=== PATIENT | female | born 1960 | race Caucasian/White ===

== ENCOUNTER 2017-01-03 21:15 | Inpatient (IN) | payer MEDICARE ==
[~2017-01-03] VITALS: Ht 160 cm; Wt 44.7 kg
[~2017-01-03 21:15] MED LIST: insulin
[2017-01-03] MEDS ORDERED: PLEASE ENTER HEIGHT AND WEIGHT MC SCH (21:30)
[2017-01-03] MEDS ORDERED: SODIUM CHLORIDE 0.9% 1,000ML IVBOLUS ONE ×2 (21:30→22:30)
[2017-01-03 21:43] LABS: HEMATOCRIT 39.1 % (34.6-47.8); HEMOGLOBIN 12.9 g/dL (11.7-16.4); WHITE BLOOD COUNT 10.4 x10^3/uL (3.4-10)
[2017-01-03 21:44] LABS: PH, VENOUS 7.457 pH (7.320-7.420)
[2017-01-03] MEDS ORDERED: ONDANSETRON 2MG/ML, 2ML ONE (21:45)
[2017-01-03] MEDS ORDERED: PROMETHAZINE 25 MG/ML, 1ML ONE (21:45)
[2017-01-03] MEDS ORDERED: LORazepam 2 MG/ML, 1ML ONE (21:46)
[2017-01-03 21:56] LABS: ASPARTATE AMINO TRANSFERASE 11 U/L (15-37); BLOOD UREA NITROGEN 23 mg/dL (7-18)
[2017-01-03] MEDS ORDERED: LORazepam 2 MG/ML, 1ML IVPush ONE (22:00)
[2017-01-03] MEDS ORDERED: ONDANSETRON 2MG/ML, 2ML IVPush ONE (22:00)
[2017-01-03] MEDS ORDERED: PROMETHAZINE 25 MG/ML, 1ML IM ONE (22:00)
[2017-01-03 22:02] LABS: IS PT STATUS REG ER OR PRE ER? YES
[2017-01-03] MEDS ORDERED: SODIUM CHLORIDE 0.9% 1,000 ML IV ONE (22:16)
[2017-01-03] MEDS ORDERED: REGULAR INSULIN 62.5 UNITS in SODIUM CHLORIDE 0.9% 249.375 ML IV PRN ×2 (22:16→23:15)
[2017-01-03] MEDS ORDERED: D5%-0.45% NACL 1,000 ML IV PRN (23:15)
[2017-01-03] MEDS ORDERED: ONDANSETRON 2MG/ML, 2ML IVPush PRN (23:30)
[2017-01-03] MEDS ORDERED: DEXTROSE 4 GM TAB.CHEW PO PRN (23:30)
[2017-01-03] MEDS ORDERED: DEXTROSE 50%, 50ML SYRINGE IVPush PRN (23:30)
[2017-01-03] MEDS ORDERED: GLUCAGON 1 MG IM PRN (23:30)
[2017-01-04] MEDS ORDERED: LABETALOL 5MG/ML, 20ML IVPush PRN
[2017-01-04] MEDS ORDERED: ONDANSETRON ODT 4 MG PO PRN
[2017-01-04] MEDS ORDERED: ENALAPRILAT 1.25 MG/ML, 2ML IVPush PRN
[2017-01-04 00:45] VITALS: BP 130/60
[2017-01-04] MEDS ORDERED: LORazepam 2 MG/ML, 1ML IVPush PRN ×2 (01:00)
[2017-01-04] MEDS ORDERED: ZIPRASIDONE 20 MG INJ IM ONE (01:00)
[2017-01-04] MEDS: FAMOTIDINE 20 MG/2 ML IVPush SCH ×3 (01:31→20:12)
[2017-01-04] MEDS: NICOTINE 14MG/24 HR PATCH.TD24 TD SCH ×2 (01:31→23:33)
[2017-01-04 02:18] LABS: BLOOD UREA NITROGEN 19 mg/dL (7-18)
[2017-01-04] MEDS: SODIUM CHLORIDE 0.9% 1,000 ML IV SCH ×2 (04:01→08:21)
[2017-01-04] MEDS: D5%-0.45% NACL 1,000 ML IV SCH ×2 (04:01→10:42)
[2017-01-04 04:18] VITALS: BP 108/88
[2017-01-04 06:23] LABS: BLOOD UREA NITROGEN 18 mg/dL (7-18)
[2017-01-04] MEDS: SODIUM CHLORIDE FLUSH 10ML SYR IVF SCH ×3 (09:04→20:11)
[2017-01-04 10:32] LABS: BLOOD UREA NITROGEN 15 mg/dL (7-18)
[2017-01-04] MEDS ORDERED: GLUCAGON 1 MG IM PRN (12:00)
[2017-01-04] MEDS ORDERED: INSULIN ASPART 100 UNITS/ML, PEN SQ-INSULIN SCH (12:00)
[2017-01-04] MEDS: INSULIN ASPART 100 UNITS/ML, PEN SQ-INSULIN SCH ×4 (12:00→23:38)
[2017-01-04] MEDS ORDERED: DEXTROSE 4 GM TAB.CHEW PO PRN (12:00)
[2017-01-04] MEDS ORDERED: INSULIN DETEMIR 100 UNITS/ML, PEN SQ-INSULIN SCH (12:00)
[2017-01-04] MEDS ORDERED: DEXTROSE 50%, 50ML SYRINGE IVPush PRN (12:00)
[2017-01-04] MEDS: ACETAMINOPHEN 325 MG TABLET PO PRN ×2 (17:21→21:01)
[2017-01-05] MEDS ORDERED: INSULIN DETEMIR 100 UNITS/ML, PEN SQ-INSULIN SCH
[2017-01-05] MEDS ORDERED: ALBUTEROL/IPRATROPIUM 2.5MG/0.5MG, 3 ML ONE (03:49)
[2017-01-05 04:00] VITALS: BP 133/55
[2017-01-05] MEDS: INSULIN ASPART 100 UNITS/ML, PEN SQ-INSULIN SCH ×5 (04:00→20:27)
[2017-01-05] MEDS ORDERED: ALBUTEROL/IPRATROPIUM 2.5MG/0.5MG, 3 ML NPPB PRN (04:00)
[2017-01-05 04:52] LABS: BLOOD UREA NITROGEN 16 mg/dL (7-18)
[2017-01-05 04:55] LABS: ASPARTATE AMINO TRANSFERASE 16 U/L (15-37)
[2017-01-05 05:07] LABS: HEMATOCRIT 43.9 % (34.6-47.8); HEMOGLOBIN 14.4 g/dL (11.7-16.4); WHITE BLOOD COUNT 13.6 x10^3/uL (3.4-10)
[2017-01-05 06:14] VITALS: BP 133/55
[2017-01-05] MEDS ORDERED: MAGNESIUM SULFATE PMX 2GM/50ML 50 ML IV ONE (06:30)
[2017-01-05 07:04] VITALS: BP 120/60
[2017-01-05] MEDS: SODIUM CHLORIDE FLUSH 10ML SYR IVF SCH ×4 (08:14→20:22)
[2017-01-05] MEDS: FAMOTIDINE 20 MG/2 ML IVPush SCH ×2 (08:23→20:20)
[2017-01-05] MEDS: ACETAMINOPHEN 325 MG TABLET PO PRN ×2 (08:34→15:41)
[2017-01-05] MEDS: CEFTRIAXONE PMX 1GM/50ML 50 ML IV SCH (10:04)
[2017-01-05] MEDS: INSULIN DETEMIR 100 UNITS/ML, PEN SQ-INSULIN SCH ×2 (10:05→20:22)
[2017-01-05 12:31] LABS: DAU SCREEN DISCLAIMER
[2017-01-05] MEDS ORDERED: ALBUTEROL SULFATE 2.5 MG/3 ML ONE (12:55)
[2017-01-05] MEDS ORDERED: ALBUTEROL SULFATE 2.5 MG/3 ML NPPB PRN (13:00)
[2017-01-05 18:40] VITALS: BP 106/70
[2017-01-05] MEDS ORDERED: INSULIN ASPART 100 UNITS/ML, PEN SQ-INSULIN ONE (20:30)
[2017-01-06] MEDS: NICOTINE 14MG/24 HR PATCH.TD24 TD SCH
[2017-01-06] MEDS: INSULIN ASPART 100 UNITS/ML, PEN SQ-INSULIN SCH ×3 (00:06→08:08)
[2017-01-06] MEDS: ACETAMINOPHEN 325 MG TABLET PO PRN ×2 (00:21→09:35)
[2017-01-06 02:20] VITALS: BP 128/76
[2017-01-06 05:45] LABS: BLOOD UREA NITROGEN 15 mg/dL (7-18)
[2017-01-06 05:50] LABS: HEMATOCRIT 36.1 % (34.6-47.8); HEMOGLOBIN 11.8 g/dL (11.7-16.4); WHITE BLOOD COUNT 7.1 x10^3/uL (3.4-10)
[2017-01-06 08:01] VITALS: BP 133/80
[2017-01-06] MEDS: SODIUM CHLORIDE FLUSH 10ML SYR IVF SCH ×2 (08:08)
[2017-01-06] MEDS: FAMOTIDINE 20 MG/2 ML IVPush SCH (08:08)
[2017-01-06] MEDS: CEFTRIAXONE PMX 1GM/50ML 50 ML IV SCH (09:30)
[2017-01-06] MEDS: INSULIN DETEMIR 100 UNITS/ML, PEN SQ-INSULIN SCH (10:00)
[2017-01-06] MEDS ORDERED: CEFD300C37 PO (10:33)
== END 2017-01-06 11:50 | disposition home or self-care (01) | DRG 70 ==
LOC: ED 22:13 → EDIP 22:58 → CCU 23:02 → 5SO 01-05 11:06 → 4EST 01-06 03:13
PROVIDERS: ADMIT Internal Medicine; ATTEND Internal Medicine
DX: G93.40 Encephalopathy, unspecified (principal); E13.10 Other specified diabetes mellitus with ketoacidosis without coma; N17.9 Acute kidney failure, unspecified; Z91.19 Patient's noncompliance with other medical treatment and regimen; E86.0 Dehydration; Z79.4 Long term (current) use of insulin; Z87.891 Personal history of nicotine dependence; Z91.14 Patient's other noncompliance with medication regimen; Z90.710 Acquired absence of both cervix and uterus; Z90.49 Acquired absence of other specified parts of digestive tract
CPT/HCPCS: 36415; 71010; 71020; 76700; 80048; 80053; 80307; 81001; 82010; 82803; 82947; 82962; 83036; 83735; 84100; 84484; 85025; 87081; 87086; 93005; 94640; 96361; 96372; 96374; 96375; J0696; J1815; J2405; J2550; J3486; J7613; J7620; J2060; J3475; J7030; S0028

== ENCOUNTER 2018-04-29 10:37 | Emergency (ER) | payer MEDICARE ==
[~2018-04-29] VITALS: Ht 160 cm; Wt 60.9 kg
[~2018-04-29 10:37] MED LIST changes: +ASPI-650 PO; +CEFD300C37 PO; +INSU100V5 SQ-INSULIN
[2018-04-29] MEDS ORDERED: SODIUM CHLORIDE FLUSH 10ML SYR IVF ONE ×2 (11:00→12:00)
[2018-04-29 11:10] LABS: PH, VENOUS 7.376 pH (7.320-7.420)
[2018-04-29 11:11] LABS: BASOPHILS # (AUTO) 0.06 x10^3/uL (0-0.1); BASOPHILS % (AUTO) 1 % (0-1); EOSINOPHILS % (AUTO) 1 % (1-7); FIO2 ROOM AIR %; LYMPHOCYTES # (AUTO) 1.89 x10^3/uL (1-3.4); LYMPHOCYTES % (AUTO) 28 % (22-44); MD NO; MEAN CORPUSCULAR HEMOGLOBIN 30.2 pg (27.0-34.8); MEAN CORPUSCULAR HGB CONC 33.5 g/dL (32.4-35.8); MONOCYTES % (AUTO) 7 % (2-9); NEUTROPHILS # (AUTO) 4.29 x10^3/uL (1.8-6.8); NEUTROPHILS % (AUTO) 63 % (42-75); PLATELET COUNT 252 x10^3/uL (130-400); RED BLOOD COUNT 4.65 x10^6/uL (3.82-5.3); RED CELL DISTRIBUTION WIDTH 13.7 % (9.6-15.2)
[2018-04-29 11:19] LABS: ALBUMIN 3.1 g/dL (3.4-5.0); ANION GAP 8 mmol/L (5-15); CHLORIDE 100 mmol/L (98-107)
[2018-04-29 11:22] LABS: ALANINE AMINOTRANSFERASE 18 U/L (12-78); CREATININE 0.94 mg/dL (0.55-1.02)
[2018-04-29] MEDS ORDERED: ONDANSETRON 2MG/ML, 2ML ONE (11:22)
[2018-04-29 11:24] LABS: ALKALINE PHOSPHATASE 98 U/L (45-117); BILIRUBIN,TOTAL 0.3 mg/dL (0.2-1.0); TOTAL PROTEIN 6.8 g/dL (6.4-8.2)
[2018-04-29 11:29] LABS: MICROSCOPIC NOT IND
[2018-04-29] MEDS ORDERED: ONDANSETRON 2MG/ML, 2ML IVPush ONE (11:30)
[2018-04-29 11:34] LABS: ACETONE, SERUM Moderate(40mg/dL) mg/dL (Negative)
[2018-04-29 11:36] LABS: CULTURE INDICATED? NO
[2018-04-29] MEDS ORDERED: MORPHINE SULFATE 4 MG/ML, 1ML ONE (11:50)
[2018-04-29] MEDS ORDERED: INSULIN REGULAR 100 UNITS/ML, 3ML VIAL ONE ×2 (11:52→13:29)
[2018-04-29] MEDS ORDERED: MORPHINE SULFATE 4 MG/ML, 1ML IVPush PRN (12:00)
[2018-04-29] MEDS ORDERED: INSULIN REGULAR 100 UNITS/ML, 3ML VIAL SQ-INSULIN SCH ×2 (12:00→16:00)
[2018-04-29] MEDS ORDERED: SODIUM CHLORIDE 0.9% 1,000ML IVBOLUS ONE (12:00)
[2018-04-29] MEDS ORDERED: MAGNESIUM CITRATE 300ML ORAL SOL PO ONE (12:30)
[2018-04-29 14:35] VITALS: BP 111/53
[2018-04-29] MEDS ORDERED: MAGNESIUM CITRATE 300ML ORAL SOL ONE (14:56)
== END 2018-04-29 15:10 | disposition home or self-care (01) ==
LOC: ED 12:53
DX: K59.00 Constipation, unspecified (principal); E11.65 Type 2 diabetes mellitus with hyperglycemia
CPT/HCPCS: 74018; 80053; 81003; 82010; 82803; 82962; 83690; 85025; 96361; 96372; 96374; 96375; 99284; J2405; J7030

== ENCOUNTER 2018-05-24 11:31 | Inpatient (IN) | payer MEDICARE ==
[~2018-05-24] VITALS: Ht 160 cm; Wt 62.1 kg
--- NOTE | 2018-05-24 11:49 | NUR ---
.PT BIB [facility] FOR SHORTNESS OF BREATH X 2 DAYS. PT WITH HX: DM- PT STATED THAT SHE HAS BEEN OUT OF HER OWN INSULIN AND HAS BEEN TAKING HER BROTHERS INSULINS THAT IS A COMPLETELY DIFFERENT INSULIN THAN HERS. PER [facility] GLUCOSE 331. PT WITH HX OF METH ABUSE AND LAST METH USED " A FEW DAYS AGO." PT PLACED IN ROOM AND PLACED ON BP AND CONT. PULSE OXIMETER. ASSESSMENT COMPLETED. MD AT BEDSIDE.
[2018-05-24] MEDS ORDERED: OXYcodone/APAP 5/325MG TABLET PO ONE (12:00)
[2018-05-24] MEDS ORDERED: SODIUM CHLORIDE FLUSH 10ML SYR IVF ONE (12:00)
[2018-05-24] MEDS ORDERED: SODIUM CHLORIDE 0.9% 1,000ML IVBOLUS ONE (12:00)
[2018-05-24] MEDS ORDERED: HUM100VI5 SQ (12:27)
--- NOTE | 2018-05-24 12:28 | NUR ---
LAB INTO DRAW PT
--- NOTE | 2018-05-24 12:34 | NUR ---
PT UP TO BR
[2018-05-24 12:35] LABS: PH, VENOUS 7.277 pH (7.320-7.420)
[2018-05-24 12:36] LABS: BASOPHILS # (AUTO) 0.06 x10^3/uL (0-0.1); BASOPHILS % (AUTO) 1 % (0-1); EOSINOPHILS # (AUTO) 0.17 x10^3/uL (0-0.4); EOSINOPHILS % (AUTO) 3 % (1-7); LYMPHOCYTES # (AUTO) 2.62 x10^3/uL (1-3.4); LYMPHOCYTES % (AUTO) 40 % (22-44); MD NO; MEAN CORPUSCULAR HEMOGLOBIN 31.4 pg (27.0-34.8); MEAN CORPUSCULAR VOLUME 92.2 fL (80-100); MEAN PLATELET VOLUME 9.5 fL (7.4-10.4); MONOCYTES # (AUTO) 0.46 x10^3/uL (0.2-0.8); MONOCYTES % (AUTO) 7 % (2-9); NEUTROPHILS # (AUTO) 3.28 x10^3/uL (1.8-6.8); NEUTROPHILS % (AUTO) 50 % (42-75); PLATELET COUNT 280 x10^3/uL (130-400); RED CELL DISTRIBUTION WIDTH 14.4 % (9.6-15.2)
[2018-05-24] MEDS ORDERED: OXYcodone/APAP 5/325MG TABLET ONE (12:46)
[2018-05-24 12:48] LABS: ALANINE AMINOTRANSFERASE 16 U/L (12-78); ALBUMIN 3.8 g/dL (3.4-5.0); ANION GAP 12 mmol/L (5-15); CALCIUM 8.9 mg/dL (8.5-10.1); CHLORIDE 103 mmol/L (98-107); CREATININE 0.93 mg/dL (0.55-1.02)
[2018-05-24 12:50] LABS: ALKALINE PHOSPHATASE 116 U/L (45-117); BILIRUBIN,TOTAL 0.5 mg/dL (0.2-1.0); TOTAL PROTEIN 7.9 g/dL (6.4-8.2)
[2018-05-24 13:29] LABS: CULTURE INDICATED? NO; MICROSCOPIC NOT IND
[2018-05-24 13:53] LABS: ACETONE, SERUM Large (80mg/dL) mg/dL (Negative)
[2018-05-24] MEDS ORDERED: hydrALAzine 20 MG/ML, 1ML IVPush PRN (14:00)
[2018-05-24] MEDS ORDERED: DOCUSATE 100 MG CAPSULE PO PRN (14:00)
[2018-05-24] MEDS ORDERED: KETOROLAC 30 MG/1 ML IV PRN (14:00)
[2018-05-24] MEDS ORDERED: POLYETHYLENE GLYCOL 17 GM PACKET PO PRN (14:00)
[2018-05-24] MEDS ORDERED: BISACODYL 10 MG SUPP PR PRN (14:00)
[2018-05-24] MEDS ORDERED: ENOXAPARIN 40 MG/0.4 ML ONE (14:04)
[2018-05-24] MEDS: SODIUM CHLORIDE 0.9% 1,000 ML IV SCH ×2 (14:08→21:15)
[2018-05-24] MEDS: ENOXAPARIN 40 MG/0.4 ML SQ SCH (14:08)
[2018-05-24] MEDS ORDERED: NICOTINE 14MG/24 HR PATCH.TD24 TD ONE (14:30)
--- NOTE | 2018-05-24 14:46 | NUR ---
PT MEDICATED PER [facility], HOSPITAL BED REQUESTED. PT HAS PIV FLUIDS RUNNING.
[2018-05-24] MEDS: INSULIN LISPRO 100 UNITS/ML, PEN SQ-INSULIN SCH ×2 (15:05→21:15)
[2018-05-24 15:57] LABS: ANION GAP 15 mmol/L (5-15); CALCIUM 7.9 mg/dL (8.5-10.1); CHLORIDE 107 mmol/L (98-107); CREATININE 0.62 mg/dL (0.55-1.02)
--- NOTE | 2018-05-24 16:26 | NUR ---
TAHMINA RN: PT CURRENTLY SITTING ON [employer]. NAD NOTED. SKIN PWD. RESP EVEN AND EQAUL. PT DENIES PAIN/NEEDS AT THIS TIME. PT ON CONT BP AND O2 MONITORS. CALL LIGHT WITHIN REACH.
[2018-05-24 16:36] LABS: AMPHETAMINE SCREEN, URINE Positive (Negative); BARBITURATE SCREEN, URINE Negative (Negative); BENZODIAZEPINE SCREEN, URINE Negative (Negative); CANNABINOID SCREEN, URINE Negative (Negative); COCAINE SCREEN, URINE Negative (Negative); METHADONE SCREEN, URINE Negative (Negative); OPIATE SCREEN, URINE Negative (Negative)
--- NOTE | 2018-05-24 16:41 | NUR ---
PT TAKEN TO RESTROOM, NO NEEDS AT THIS TIME.
[2018-05-24] MEDS ORDERED: ONDANSETRON 2MG/ML, 2ML ONE (17:38)
[2018-05-24] MEDS: ONDANSETRON 2MG/ML, 2ML IVPush PRN (17:50)
--- NOTE | 2018-05-24 17:52 | NUR ---
reprot to edgar keys
[2018-05-24 18:23] VITALS: BP 105/54
[2018-05-24 20:53] VITALS: BP 117/80
[2018-05-24] MEDS: INSULIN HUMULIN 70/30, 3ML PEN SQ-INSULIN SCH (21:16)
[2018-05-25] LABS: RAPID INFLUENZA A Negative (Negative); RAPID INFLUENZA B Negative (Negative)
[2018-05-25 02:00] VITALS: BP 105/61
[2018-05-25] MEDS: SODIUM CHLORIDE 0.9% 1,000 ML IV SCH ×3 (02:37→21:31)
[2018-05-25 06:34] LABS: BASOPHILS # (AUTO) 0.07 x10^3/uL (0-0.1); BASOPHILS % (AUTO) 1 % (0-1); EOSINOPHILS # (AUTO) 0.19 x10^3/uL (0-0.4); EOSINOPHILS % (AUTO) 3 % (1-7); LYMPHOCYTES # (AUTO) 2.95 x10^3/uL (1-3.4); LYMPHOCYTES % (AUTO) 50 % (22-44); MD NO; MEAN CORPUSCULAR HEMOGLOBIN 31.5 pg (27.0-34.8); MEAN CORPUSCULAR VOLUME 92.9 fL (80-100); MEAN PLATELET VOLUME 9.4 fL (7.4-10.4); MONOCYTES # (AUTO) 0.62 x10^3/uL (0.2-0.8); MONOCYTES % (AUTO) 11 % (2-9); NEUTROPHILS # (AUTO) 2.02 x10^3/uL (1.8-6.8); NEUTROPHILS % (AUTO) 35 % (42-75); PLATELET COUNT 206 x10^3/uL (130-400); RED BLOOD COUNT 3.72 x10^6/uL (3.82-5.3)
[2018-05-25 06:51] LABS: CALCIUM 7.9 mg/dL (8.5-10.1)
[2018-05-25 07:03] VITALS: BP 106/67
[2018-05-25 07:08] LABS: ANION GAP 8 mmol/L (5-15); CHLORIDE 115 mmol/L (98-107)
[2018-05-25] MEDS: INSULIN LISPRO 100 UNITS/ML, PEN SQ-INSULIN SCH ×4 (08:26→21:23)
[2018-05-25] MEDS: INSULIN HUMULIN 70/30, 3ML PEN SQ-INSULIN SCH (08:26)
[2018-05-25] MEDS ORDERED: POTASSIUM CHLORIDE 10% 40 MEQ/30 ML UDC PO ONE (09:00)
[2018-05-25] MEDS ORDERED: INSULIN HUMULIN 70/30, 3ML PEN SQ-INSULIN SCH ×3 (09:00→21:00)
[2018-05-25] MEDS ORDERED: GABAPENTIN 300 MG CAPSULE PO PRN (09:30)
[2018-05-25] MEDS ORDERED: NOVOLIN SQ (11:09)
[2018-05-25] MEDS: ACETAMINOPHEN 325 MG TABLET PO PRN ×3 (11:46→21:24)
[2018-05-25 12:49] LABS: HEMOGLOBIN A1C 11.8 % (4.2-6.3)
[2018-05-25 14:20] VITALS: BP 95/60
[2018-05-25] MEDS: ENOXAPARIN 40 MG/0.4 ML SQ SCH (14:28)
[2018-05-25 18:37] LABS: MICROSCOPIC NOT IND
[2018-05-25 18:43] LABS: CULTURE INDICATED? NO
[2018-05-25 20:20] VITALS: BP 116/69
[2018-05-25] MEDS: ONDANSETRON 2MG/ML, 2ML IVPush PRN (21:41)
[2018-05-26 01:39] VITALS: BP 103/65
[2018-05-26] MEDS: ACETAMINOPHEN 325 MG TABLET PO PRN ×2 (02:05→06:15)
[2018-05-26 05:48] LABS: MEAN CORPUSCULAR HEMOGLOBIN 31.6 pg (27.0-34.8); MEAN CORPUSCULAR HGB CONC 34.2 g/dL (32.4-35.8); MEAN CORPUSCULAR VOLUME 92.4 fL (80-100); MEAN PLATELET VOLUME 9.1 fL (7.4-10.4); PLATELET COUNT 220 x10^3/uL (130-400); RED BLOOD COUNT 3.45 x10^6/uL (3.82-5.3); RED CELL DISTRIBUTION WIDTH 14.5 % (9.6-15.2)
[2018-05-26 05:59] LABS: ALBUMIN 2.5 g/dL (3.4-5.0); ANION GAP 5 mmol/L (5-15); CHLORIDE 111 mmol/L (98-107)
[2018-05-26 06:05] LABS: CREATININE 0.56 mg/dL (0.55-1.02)
[2018-05-26 06:15] LABS: BASOPHILS # (AUTO) 0.04 x10^3/uL (0-0.1); BASOPHILS % (AUTO) 1 % (0-1); EOSINOPHILS # (AUTO) 0.15 x10^3/uL (0-0.4); EOSINOPHILS % (AUTO) 3 % (1-7); LYMPHOCYTES # (AUTO) 3.52 x10^3/uL (1-3.4); LYMPHOCYTES % (AUTO) 62 % (22-44); MD SCAN; MONOCYTES # (AUTO) 0.43 x10^3/uL (0.2-0.8); MONOCYTES % (AUTO) 8 % (2-9); NEUTROPHILS # (AUTO) 1.56 x10^3/uL (1.8-6.8); NEUTROPHILS % (AUTO) 27 % (42-75)
[2018-05-26] MEDS: SODIUM CHLORIDE 0.9% 1,000 ML IV SCH (06:15)
[2018-05-26] MEDS ORDERED: GLUCAGON 1 MG IM PRN (06:30)
[2018-05-26] MEDS ORDERED: DEXTROSE 50%, 50ML SYRINGE IVPush PRN (06:30)
[2018-05-26] MEDS ORDERED: DEXTROSE 4 GM TAB.CHEW PO PRN (06:30)
[2018-05-26] MEDS: INSULIN LISPRO 100 UNITS/ML, PEN SQ-INSULIN SCH ×2 (07:00→11:47)
[2018-05-26 07:25] VITALS: BP 117/72
[2018-05-26] MEDS ORDERED: SODIUM CHLORIDE FLUSH 10ML SYR IVF SCH (09:00)
[2018-05-26] MEDS ORDERED: INSULIN HUMULIN 70/30, 3ML PEN SQ-INSULIN SCH (09:00)
[2018-05-26 12:08] VITALS: BP 123/74
[2018-05-26] MEDS: ENOXAPARIN 40 MG/0.4 ML SQ SCH (14:00)
[2018-05-26] MEDS ORDERED: NOVOLIN SQ (14:33)
[2018-05-26] MEDS ORDERED: INSU100I11 SQ-INSULIN (14:33)
== END 2018-05-26 15:58 | disposition home or self-care (01) | DRG 638 ==
LOC: ED 11:39 → EDIP 13:19 → 4NOR 18:05
PROVIDERS: ADMIT Hospitalist; ATTEND Hospitalist
DX: E11.10 Type 2 diabetes mellitus with ketoacidosis without coma (principal); E87.1 Hypo-osmolality and hyponatremia; E11.649 Type 2 diabetes mellitus with hypoglycemia without coma; E86.0 Dehydration; F15.90 Other stimulant use, unspecified, uncomplicated; F17.210 Nicotine dependence, cigarettes, uncomplicated; M79.7 Fibromyalgia; Z79.4 Long term (current) use of insulin; Z82.49 Family history of ischemic heart disease and other diseases of the circulatory system; Z83.3 Family history of diabetes mellitus; Z80.3 Family history of malignant neoplasm of breast; Z80.9 Family history of malignant neoplasm, unspecified; Z90.710 Acquired absence of both cervix and uterus; Z91.19 Patient's noncompliance with other medical treatment and regimen; Z79.82 Long term (current) use of aspirin; Z79.899 Other long term (current) drug therapy; Z90.49 Acquired absence of other specified parts of digestive tract; Z88.6 Allergy status to analgesic agent; Z88.2 Allergy status to sulfonamides; Z88.8 Allergy status to other drugs, medicaments and biological substances
CPT/HCPCS: 36415; 71045; 80048; 80053; 80307; 81003; 82010; 82040; 82803; 82947; 82962; 83036; 83605; 83735; 84145; 85025; 87040; 87400; 93005; 96361; 96372; 96374; 99291; G0378; J1650; J2405; J1815; J7030

== ENCOUNTER 2018-08-11 10:13 | Emergency (ER) | payer MEDICARE ==
[~2018-08-11] VITALS: Ht 160 cm; Wt 60.0 kg
[~2018-08-11 10:13] MED LIST changes: +HUM100VI5 SQ; +INSU100I11 SQ-INSULIN; +NOVOLIN SQ
--- NOTE | 2018-08-11 10:53 | NUR ---
PT C/O INTERMITTENT CP AND SOB FOR LAST THREEE DAY WITH CHILLLS AND BODY ACHES. PT THINKS SHE HAS DKA WITH BS AT [facility] THIS AM OF 108. PT HAS NOT SEEN MD IN A COUPLE YEARS OTHER THAN HER ADMISSION HERE IN MAY. PT ON MONITOR AND SEEN BY DR. BARAJAS. WAITING FOR ORDERS.
[2018-08-11] MEDS ORDERED: KETOROLAC 30 MG/1 ML IM ONE (11:00)
[2018-08-11] MEDS ORDERED: NPH,100V5 SQ (11:02)
[2018-08-11] MEDS ORDERED: INSU100C SQ-INSULIN (11:02)
[2018-08-11] MEDS ORDERED: IBUP-1223 PO (11:08)
[2018-08-11 11:12] LABS: MICROSCOPIC NOT IND
[2018-08-11 11:18] LABS: CULTURE INDICATED? NO
--- NOTE | 2018-08-11 11:18 | NUR ---
PT REFUSED TORADOL DUE TO PAST UNKNOWN REACTION. LAW AWARE. PT DENIES ANY PAIN AT THIS TIME.
[2018-08-11 11:34] LABS: PH, VENOUS 7.352 pH (7.320-7.420)
[2018-08-11 11:35] LABS: FIO2 RA %
[2018-08-11 11:43] LABS: BASOPHILS # (AUTO) 0.07 x10^3/uL (0-0.1); BASOPHILS % (AUTO) 1 % (0-1); EOSINOPHILS # (AUTO) 0.17 x10^3/uL (0-0.4); EOSINOPHILS % (AUTO) 2 % (1-7); LYMPHOCYTES # (AUTO) 2.61 x10^3/uL (1-3.4); LYMPHOCYTES % (AUTO) 35 % (22-44); MD NO; MEAN CORPUSCULAR HEMOGLOBIN 31.4 pg (27.0-34.8); MEAN CORPUSCULAR HGB CONC 34.1 g/dL (32.4-35.8); MEAN CORPUSCULAR VOLUME 92.3 fL (80-100); MEAN PLATELET VOLUME 8.6 fL (7.4-10.4); MONOCYTES # (AUTO) 0.65 x10^3/uL (0.2-0.8); MONOCYTES % (AUTO) 9 % (2-9); NEUTROPHILS % (AUTO) 53 % (42-75); PLATELET COUNT 281 x10^3/uL (130-400); RED BLOOD COUNT 4.31 x10^6/uL (3.82-5.3); RED CELL DISTRIBUTION WIDTH 12.9 % (9.6-15.2)
[2018-08-11 11:48] LABS: ALANINE AMINOTRANSFERASE 15 U/L (12-78); ALBUMIN 3.2 g/dL (3.4-5.0); ANION GAP 6 mmol/L (5-15); CALCIUM 8.5 mg/dL (8.5-10.1); CHLORIDE 105 mmol/L (98-107); CREATININE 0.88 mg/dL (0.55-1.02)
[2018-08-11 11:53] LABS: ALKALINE PHOSPHATASE 80 U/L (45-117); BILIRUBIN,TOTAL 0.3 mg/dL (0.2-1.0); TOTAL PROTEIN 6.6 g/dL (6.4-8.2); TROPONIN I < 0.015 ng/mL (0.000-0.045)
[2018-08-11 11:58] LABS: AMPHETAMINE SCREEN, URINE Positive (Negative); BARBITURATE SCREEN, URINE Negative (Negative); BENZODIAZEPINE SCREEN, URINE Negative (Negative); CANNABINOID SCREEN, URINE Negative (Negative); COCAINE SCREEN, URINE Negative (Negative); METHADONE SCREEN, URINE Negative (Negative); OPIATE SCREEN, URINE Negative (Negative)
--- NOTE | 2018-08-11 12:00 | NUR ---
PT GIVEN ANOTHER WARM BLANKET FOR COMFORT.
--- NOTE | 2018-08-11 12:31 | NUR ---
CHART UP FOR MD RECHECK. PT AWARE.
[2018-08-11 13:13] VITALS: BP 132/81
[2018-08-11 13:38] LABS: ACETONE, SERUM Trace (10mg/dL) mg/dL (Negative)
== END 2018-08-11 13:25 | disposition home or self-care (01) ==
LOC: ED 12:16
DX: R07.89 Other chest pain (principal); F15.10 Other stimulant abuse, uncomplicated; Z72.9 Problem related to lifestyle, unspecified; E11.65 Type 2 diabetes mellitus with hyperglycemia; E11.10 Type 2 diabetes mellitus with ketoacidosis without coma; F17.200 Nicotine dependence, unspecified, uncomplicated
CPT/HCPCS: 36415; 71045; 80053; 80307; 81003; 82010; 82803; 84484; 85025; 93005; 99284

== ENCOUNTER 2019-07-18 11:55 | Emergency (ER) | payer OTHER ==
[~2019-07-18] VITALS: Ht 160 cm; Wt 60.1 kg
[~2019-07-18 11:55] MED LIST changes: +HUM100VI6 SC; +IBUP-1223 PO; +INSU100C SQ-INSULIN; +NPH,100V5 SQ
[2019-07-18 12:27] VITALS: BP 115/64
[2019-07-18 13:35] LABS: RAPID INFLUENZA A Negative (Negative); RAPID INFLUENZA B Negative (Negative)
== END 2019-07-18 14:05 | disposition home or self-care (01) ==
LOC: ED 14:03
DX: H65.02 Acute serous otitis media, left ear (principal); J06.9 Acute upper respiratory infection, unspecified; E10.9 Type 1 diabetes mellitus without complications; F17.210 Nicotine dependence, cigarettes, uncomplicated
CPT/HCPCS: 71046; 82962; 87400; 99282

== ENCOUNTER 2020-06-07 06:43 | Emergency (ER) | payer OTHER ==
[~2020-06-07] VITALS: Ht 160 cm; Wt 60.0 kg
--- NOTE | 2020-06-07 06:48 | NUR ---
pt bib [facility] to [facility], and awake and jittery and unable to sit still. pt states she did meth too. pt placed on cr monitor, and [id number] up x2, and bear hugger warmer placed on pt. pt awake and answers questions. states she smokes meth.
--- NOTE | 2020-06-07 06:58 | NUR ---
Pt admits to meth use daily, tobacco, pt jerking around flailing in bed answers questions appop. IV patent from field. On monitor, sinus tach. Report to fredo keys
[2020-06-07] MEDS ORDERED: DEXTROSE 50%, 50ML SYRINGE ONE ×2 (07:05→07:11)
--- NOTE | 2020-06-07 07:07 | NUR ---
BS CHECKED PER MD ANTON. BS IS 10 MD NOTIFIED DEXTROSE 50% GIVEN. D5W-0.45% 150ML/H STARTED
[2020-06-07] MEDS ORDERED: D5%-0.45% NACL 1,000 ML IV STA (07:08)
[2020-06-07] MEDS ORDERED: D5%-0.45% NACL 1,000 ML IV SCH (07:30)
[2020-06-07] MEDS ORDERED: DEXTROSE 50%, 50ML SYRINGE IVPush ONE (07:30)
[2020-06-07] MEDS ORDERED: DEXTROSE 50%, 50ML VIAL IVPush ONE (07:30)
--- NOTE | 2020-06-07 07:35 | NUR ---
MEAL TRAY ORDERED. D5 1/2NS INFUSING, PT GIVEN APPLE JUICE AND CRACKERS. PT IS AOX4. VSS
[2020-06-07 07:50] LABS: BASOPHILS % (AUTO) 1 % (0-1); EOSINOPHILS % (AUTO) 2 % (1-7); LYMPHOCYTES % (AUTO) 15 % (22-44); MEAN CORPUSCULAR HGB CONC 34.3 g/dL (32.4-35.8); MEAN PLATELET VOLUME 8.2 fL (7.4-10.4); MONOCYTES % (AUTO) 10 % (2-9); NEUTROPHILS % (AUTO) 73 % (42-75); PLATELET COUNT 301 x10^3/uL (130-400); RED BLOOD COUNT 4.17 x10^6/uL (3.82-5.3); RED CELL DISTRIBUTION WIDTH 13.3 % (9.6-15.2)
[2020-06-07 07:57] LABS: ALBUMIN 3.4 g/dL (3.4-5.0); ANION GAP 6 mmol/L (5-15); CALCIUM 8.4 mg/dL (8.5-10.1); CHLORIDE 107 mmol/L (98-107)
[2020-06-07 08:11] LABS: MD NO
--- NOTE | 2020-06-07 08:52 | NUR ---
PT AMBULATED TO WITH STEADY GAIT, BACK TO [facility] TO ALL MONITORS
[2020-06-07 11:26] VITALS: BP 127/61
== END 2020-06-07 12:11 | disposition home or self-care (01) ==
LOC: ED 09:48
DX: F15.122 Other stimulant abuse with intoxication with perceptual disturbance (principal); E11.649 Type 2 diabetes mellitus with hypoglycemia without coma; R41.82 Altered mental status, unspecified
CPT/HCPCS: 80048; 82040; 82962; 85025; 96365; 96366; 96376; 99284